=== PATIENT | male | born 1945 | race Caucasian/White ===

== ENCOUNTER 2017-11-18 16:04 | Inpatient (IN) ==
[2017-11-18 18:36] LABS: Basophils % 0.4 % (0.0-0.8); Eosinophils # 0.3 10*3/uL (0.0-0.87); Eosinophils % 3.5 % (0.00-10.9); Hematocrit 43.8 VOL% (42.0-52.0); Hemoglobin 14.4 GM/DL (14.0-18.0); Immature Granulocytes % 0.5 %; Immature Granulocytes Absolute 0.04 #; Lymphocytes # 1.5 10*3/uL (1.4-4.0); Lymphocytes % 19.6 % (21.2-54.2); Mean Corpuscular HGB Conc 32.9 GM/DL (32-36); Mean Corpuscular Hemoglobin 30 PG (27-34); Mean Corpuscular Volume 91.4 FL (87-102); Mean Platelet Volume 9.8 FL (9.6-12.0); Monocytes # 0.6 10*3/uL (0.11-0.8); Monocytes % 7.9 % (1.7-12.7); Neutrophils % 68.1 % (38.7-73.9); Platelet Count 210 T/CUMM (130-400); Red Blood Count 4.79 MC/CUMM (3.8-5.5); Red Cell Distribution Width 12.9 % (9.3-17.3); White Blood Count 7.4 T/CUMM (4-12)
[2017-11-18] MEDS ORDERED: hydrALAZINE 20 MG/1 ML VIAL IV STA (18:45)
[2017-11-18 18:46] LABS: PT Patient Result 10.2 SECS
[2017-11-18 18:55] LABS: Albumin 3.6 G/DL (3.4-5.0); Bilirubin,Total 0.4 MG/DL (0.2-1.0); Calcium 8.4 MG/DL (8.5-10.1); Osmolality,Calculated 275.5 MOS/KG (273-304); Potassium 4.2 MMOL/L (3.5-5.1); Total Protein 7.3 G/DL (6.4-8.3)
[2017-11-18 18:56] LABS: Troponin I Only < 0.015 NG/ML (0.00-0.045)
[2017-11-18] MEDS ORDERED: ENOXAPARIN 100 MG/ML SYRINGE SUBCUT STA (19:33)
[2017-11-18] MEDS ORDERED: ENOXAPARIN 100 MG/ML SYRINGE SUBCUT ONE (19:45)
[2017-11-18] MEDS ORDERED: hydrALAZINE 20 MG/1 ML VIAL ONE (19:46)
[2017-11-18] MEDS ORDERED: ENOXAPARIN 30 MG/0.3 ML SYRINGE ONE (19:46)
[2017-11-18] MEDS ORDERED: hydrALAZINE 20 MG/1 ML VIAL IV PRN (20:51)
[2017-11-19 06:08] LABS: Basophils % 0.5 % (0.0-0.8); Eosinophils # 0.3 10*3/uL (0.0-0.87); Eosinophils % 4.4 % (0.00-10.9); Hematocrit 40.9 VOL% (42.0-52.0); Hemoglobin 13.4 GM/DL (14.0-18.0); Immature Granulocytes % 0.2 %; Immature Granulocytes Absolute 0.01 #; Lymphocytes % 16.6 % (21.2-54.2); Mean Corpuscular HGB Conc 32.8 GM/DL (32-36); Mean Corpuscular Hemoglobin 30 PG (27-34); Mean Corpuscular Volume 91.1 FL (87-102); Mean Platelet Volume 10.2 FL (9.6-12.0); Monocytes # 0.5 10*3/uL (0.11-0.8); Neutrophils # 4.1 10*3/uL (1.4-7.4); Neutrophils % 69.3 % (38.7-73.9); Platelet Count 205 T/CUMM (130-400); Red Blood Count 4.49 MC/CUMM (3.8-5.5); Red Cell Distribution Width 12.8 % (9.3-17.3); White Blood Count 5.9 T/CUMM (4-12)
[2017-11-19 06:37] LABS: Bilirubin,Total 0.7 MG/DL (0.2-1.0); Calcium 8.1 MG/DL (8.5-10.1); Osmolality,Calculated 275.5 MOS/KG (273-304); Potassium 3.6 MMOL/L (3.5-5.1); Total Protein 6.3 G/DL (6.4-8.3)
[2017-11-19] MEDS: RIVAROXABAN 15 MG TABLET PO SCH ×2 (08:57→16:43)
[2017-11-19] MEDS ORDERED: LISINOPRIL/HCTZ 20-12.5 MG TABLET PO SCH (09:00)
[2017-11-19] MEDS: POTASSIUM CHLORIDE 20 MEQ TABLET PO SCH (14:23)
[2017-11-19] MEDS: amLODIPine 10 MG TABLET PO SCH (14:23)
[2017-11-19] MEDS: CARVEDILOL 6.25 MG TABLET PO SCH (16:43)
[2017-11-19] MEDS: LISINOPRIL/HCTZ 20-12.5 MG TABLET PO SCH (20:51)
[2017-11-20] MEDS: amLODIPine 10 MG TABLET PO SCH (08:23)
[2017-11-20] MEDS: LISINOPRIL/HCTZ 20-12.5 MG TABLET PO SCH ×2 (08:23→21:12)
[2017-11-20] MEDS: CARVEDILOL 6.25 MG TABLET PO SCH (08:24)
[2017-11-20] MEDS: RIVAROXABAN 15 MG TABLET PO SCH ×2 (08:24→16:49)
[2017-11-20] MEDS: POTASSIUM CHLORIDE 20 MEQ TABLET PO SCH (08:24)
[2017-11-20] MEDS: CARVEDILOL 12.5 MG TABLET PO SCH (16:49)
[2017-11-21] MEDS: POTASSIUM CHLORIDE 20 MEQ TABLET PO SCH (08:56)
[2017-11-21] MEDS: CARVEDILOL 12.5 MG TABLET PO SCH (08:56)
[2017-11-21] MEDS: amLODIPine 10 MG TABLET PO SCH (08:56)
[2017-11-21] MEDS: RIVAROXABAN 15 MG TABLET PO SCH (08:56)
[2017-11-21] MEDS: LISINOPRIL/HCTZ 20-12.5 MG TABLET PO SCH (08:56)
[2017-11-21 10:08] VITALS: BP 154/80
== END 2017-11-21 11:30 | disposition home or self-care (01) | DRG 299 ==
LOC: N.ED 16:04 → N.EDINP 20:43 → N.4E 21:32
PROVIDERS: ADMIT Internal Medicine; ATTEND Internal Medicine